=== PATIENT | female | born 1940 | race Caucasian/White ===

== ENCOUNTER 2016-10-14 14:31 | Emergency (ER) | payer OTHER ==
[2016-10-14 14:43] VITALS: TEMP 100.2
[2016-10-14] MEDS ORDERED: ACETAMINOPHEN 325 MG TAB PO ONE (15:00)
--- NOTE | 2016-10-14 15:15 | EDPHY ---
H & P Time Seen by Provider: 10/14/16 15:12 HPI/ROS: CHIEF COMPLAINT: Nausea, sweatiness HISTORY OF PRESENT ILLNESS: 76-year-old female with a history of oxygen- dependent COPD presents with nausea and sweatiness. Onset of intermittent nausea few days ago. Associated with intermittent sweatiness and feeling slightly off balance. Since yesterday, she has been using oxygen around the clock; usually she uses oxygen at nighttime only. She also has myalgias, a sore throat and a chronic cough. No change in her usual cough. No vomiting, diarrhea, abdominal pain or urinary symptoms. REVIEW OF SYSTEMS: Constitutional: No fever, no chills Eyes: No visual changes ENT: Had 3 teeth pulled 2 weeks ago Cardiac: No chest pain Gastrointestinal: no vomiting, no abdominal pain Genitourinary: No hematuria, no dysuria Musculoskeletal: No leg swelling Skin: No rash Neurological: No headache, no weakness Psychiatric: No depression Past Medical/Surgical History: COPD Diabetes Hypertension AICD Social History: PCP: Dr. Raza Smoking Status: Former smoker Physical Exam: General Appearance: Alert, nontoxic Eyes: Pupils equal and round, no conjunctival pallor or injection ENT, Mouth: Mucous membranes moist, no pharyngeal erythema Neck: Normal inspection, no adenopathy Respiratory: normal respiratory rate, Lungs are clear to auscultation, no wheezing Cardiovascular: Regular rate and rhythm Gastrointestinal: Abdomen is soft and nontender Neurological: A&O, nonfocal, normal gait Skin: Warm and dry, no rash Extremities: Nontender, no pedal edema Psychiatric: Mood and affect normal Constitutional: Initial Vital Signs Temperature (C) 37.9 C 10/14/16 14:37 Heart Rate 97 10/14/16 14:37 Respiratory Rate 167 H 10/14/16 14:37 Blood Pressure 162/126 H 10/14/16 14:37 O2 Sat (%) 97 10/14/16 14:37 O2 Delivery Mode Nasal Cannula O2 (L/minute) 2 Allergies/Adverse Reactions: cefaclor [From [facility]] Allergy (Verified 10/14/16 14:34) Unknown Home Medications: Medication Instructions Recorded Albuterol [Proventil Inhaler HFA 2 puffs IH Q4H PRN 10/22/13 (*)] Aspirin [Aspirin 81mg (*)] 81 mg PO DAILY 10/22/13 Fluoxetine HCl 60 mg PO DAILY 10/22/13 Nitroglycerin [Nitrostat 0.4 mg 0.4 mg SL PRN PRN 10/22/13 (*)] Omeprazole [Prilosec 20 mg] 20 mg PO DAILY 10/22/13 Oxycodone HCl/Acetaminophen 1 each PO Q3 PRN 10/22/13 [Percocet 10-325 mg Tablet] Tiotropium Inhaler [Spiriva 1 inh IH HS 10/22/13 Inhaler (RX)] Furosemide [Lasix 20 MG (*)] 20 - 40 mg PO BID 09/16/15 Spironolactone [Aldactone 25 MG 50 mg PO BID 09/16/15 (*)] Temazepam [Restoril 15 MG (*)] 30 mg PO HS PRN 09/16/15 Azithromycin [Zithromax] 250 mg PO DAILY #6 tab 10/14/16 Ondansetron Odt [Zofran Odt 4 mg 4 mg PO Q4 PRN #6 tab 10/14/16 (*)] Medical Decision Making - Diagnostics EKG Interpretation: EKG interpreted by me reveals normal sinus rhythm, rate 89, poor R-wave progression, T-wave flattening in 1 and aVL. Similar to EKG dated 09/16/2015. Imaging Results: Imaging Impressions Chest X-Ray 10/14/16 14:59 Impression: 1. Pacemaker without pneumothorax. 2. Chronic bronchitis/airways disease. 3. No definite focal pneumonia. Imaging: I viewed and interpreted images myself ED Course/Re-evaluation: This patient presents with low-grade fever, increased oxygen need and URI symptoms. She does not meet SIRS criteria. I suspect that the intermittent diaphoresis is related to fever. I do not suspect a cardiac etiology for her symptoms. Tylenol 650 mg orally given on patient arrival. Triage VS noted. RR is 16 (not 167). BNP is slightly elevated; no evidence of acute pulmonary edema causing this patient's symptoms. I feel that she has bronchitis or possibly early pneumonia. Will place her on Zithromax. She will return to the emergency department for worsening symptoms. She will follow up with Dr. Raza in the office. Differential Diagnosis: Differential diagnosis includes though it is not limited to pneumonia, pneumothorax, pulmonary embolism, aortic dissection, pericarditis, acute coronary syndrome. - Data Points Laboratory Results: Laboratory Results 10/14/16 15:10 05/06/17 15:10 10/14/16 10/14/16 10/14/16 15:45 15:10 15:10 WBC RBC Hgb Hct MCV MCH MCHC RDW Plt Count MPV Neut % (Auto) Lymph % (Auto) [place] % (Auto) Eos % (Auto) Baso % (Auto) Nucleat RBC Rel Count Absolute Neuts (auto) Absolute Lymphs (auto) Absolute Monos (auto) Absolute Eos (auto) Absolute Basos (auto) Absolute Nucleated RBC Immature Gran % Immature Gran # Sodium 141 mEq/L mEq/L (134-144) Potassium 4.0 mEq/L mEq/L (3.5-5.2) Chloride 98 mEq/L mEq/L (97-110) Carbon Dioxide 23 mEq/l mEq/l (22-31) Anion Gap 20 mEq/L H mEq/L (8-16) BUN 16 mg/dL mg/dL (7-23) Creatinine 1.1 mg/dL H mg/dL (0.6-1.0) Estimated GFR 48 Glucose 140 mg/dL H mg/dL (70-100) Calcium 9.8 mg/dL mg/dL (8.5-10.4) Total Bilirubin 0.5 mg/dL mg/dL (0.1-1.4) AST 30 IU/L IU/L (14-46) ALT 29 IU/L IU/L (9-52) Alkaline Phosphatase 77 IU/L IU/L (38-126) NT-Pro-B Natriuret Pep 585 pg/mL H pg/mL (0-450) Total Protein 8.6 g/dL H g/dL (6.3-8.2) Albumin 4.8 g/dL g/dL (3.5-5.0) Urine Color PALE YELLOW Urine Appearance CLEAR Urine pH 5.5 (5.0-7.5) Ur Specific [place] <= 1.005 (1.002-1.030) Urine Protein NEGATIVE (NEGATIVE) Urine Ketones NEGATIVE (NEGATIVE) Urine Blood NEGATIVE (NEGATIVE) Urine Nitrate NEGATIVE (NEGATIVE) Urine Bilirubin NEGATIVE (NEGATIVE) Urine Urobilinogen 0.2 EU EU (0.2-1.0) Ur Leukocyte Esterase NEGATIVE (NEGATIVE) Urine Glucose NEGATIVE (NEGATIVE) 10/14/16 15:10 WBC 9.53 10^3/uL H 10^3/uL (3.80-9.50) RBC 4.26 10^6/uL 10^6/uL (4.18-5.33) Hgb 12.6 g/dL g/dL (12.6-16.3) Hct 38.4 % % (38.0-47.0) MCV 90.1 fL fL (81.5-99.8) MCH 29.6 pg pg (27.9-34.1) MCHC 32.8 g/dL g/dL (32.4-36.7) RDW 12.6 % % (11.5-15.2) Plt Count 241 10^3/uL 10^3/uL (150-400) MPV 9.8 fL fL (8.7-11.7) Neut % (Auto) 77.7 % H % (39.3-74.2) Lymph % (Auto) 10.7 % L % (15.0-45.0) [place] % (Auto) 9.7 % % (4.5-13.0) Eos % (Auto) 1.2 % % (0.6-7.6) Baso % (Auto) 0.2 % L % (0.3-1.7) Nucleat RBC Rel Count 0.0 % % (0.0-0.2) Absolute Neuts (auto) 7.41 10^3/uL H 10^3/uL (1.70-6.50) Absolute Lymphs (auto) 1.02 10^3/uL 10^3/uL (1.00-3.00) Absolute Monos (auto) 0.92 10^3/uL H 10^3/uL (0.30-0.80) Absolute Eos (auto) 0.11 10^3/uL 10^3/uL (0.03-0.40) Absolute Basos (auto) 0.02 10^3/uL 10^3/uL (0.02-0.10) Absolute Nucleated RBC 0.00 10^3/uL 10^3/uL (0-0.01) Immature Gran % 0.5 % % (0.0-1.1) Immature Gran # 0.05 10^3/uL 10^3/uL (0.00-0.10) Sodium Potassium Chloride Carbon Dioxide Anion Gap BUN Creatinine Estimated GFR Glucose Calcium Total Bilirubin AST ALT Alkaline Phosphatase NT-Pro-B Natriuret Pep Total Protein Albumin Urine Color Urine Appearance Urine pH Ur Specific [place] Urine Protein Urine Ketones Urine Blood Urine Nitrate Urine Bilirubin Urine Urobilinogen Ur Leukocyte Esterase Urine Glucose Medications Given: Discontinued Medications Acetaminophen (Tylenol) 650 mg PO EDNOW ONE Stop: 10/14/16 15:01 Last Admin: 10/14/16 15:25 Dose: 650 mg Ondansetron HCl (Zofran Odt) 4 mg PO EDNOW ONE Stop: 10/14/16 15:18 Last Admin: 10/14/16 16:25 Dose: 4 mg Departure - Departure Disposition: Home, Routine, Self-Care Clinical Impression: COPD (chronic obstructive pulmonary disease) Qualifiers: COPD type: COPD with acute lower respiratory infection Qualified Code(s): J44.0 - Chronic obstructive pulmonary disease with acute lower respiratory infection Condition: Good Instructions: COPD (Chronic Obstructive Pulmonary Disease) (ED) Additional Instructions: Take Tylenol 650 mg orally every 4 hours as needed for fever. Return for worsening symptoms or any concerns. Referrals: Thong Raza MD [Primary Care Provider] - 2-3 days, call for appt. Prescriptions: Azithromycin [Zithromax] 250 mg PO DAILY #6 tab Ondansetron Odt [Zofran Odt 4 mg (*)] 4 mg PO Q4 PRN #6 tab PRN Reason: Nausea
[2016-10-14 15:17] LABS: % IMMATURE GRANULYOCYTES 0.5 % (0.0-1.1); ABSOLUTE IMMATURE GRANULOCYTES 0.05 10^3/uL (0.00-0.10); ADD DIFF? NO; ADD MORPH? NO; ADD SCAN? NO; ATYPICAL LYMPHOCYTE FLAG 0 (0-99); FRAGMENT RBC FLAG 0 (0-99); HEMATOCRIT 38.4 % (38.0-47.0); HEMOGLOBIN 12.6 g/dL (12.6-16.3); LEFT SHIFT FLG 0 (0-99); LIPEMIA HEMOLYSIS FLAG 80 (0-99); MEAN CELL HEMOGLOBIN 29.6 pg (27.9-34.1); MEAN CELL HEMOGLOBIN CONCENTR. 32.8 g/dL (32.4-36.7); MEAN CELL VOLUME 90.1 fL (81.5-99.8); MEAN PLATELET VOLUME 9.8 fL (8.7-11.7); PLATELET CLUMPS FLAG 0 (0-99); PLATELET COUNT 241 10^3/uL (150-400); RED BLOOD CELL COUNT 4.26 10^6/uL (4.18-5.33); RED CELL DISTRIBUTION WIDTH 12.6 % (11.5-15.2)
[2016-10-14] MEDS ORDERED: ONDANSETRON DISINTEGRATING 4 MG TAB PO ONE (15:17)
[2016-10-14 15:30] VITALS: O2SAT 96
[2016-10-14 15:30] LABS: ALBUMIN 4.8 g/dL (3.5-5.0); BILIRUBIN,TOTAL 0.5 mg/dL (0.1-1.4); CALCIUM 9.8 mg/dL (8.5-10.4); CREATININE 1.1 mg/dL (0.6-1.0); TOTAL PROTEIN 8.6 g/dL (6.3-8.2)
--- NOTE | 2016-10-14 15:45 | CPEKG ---
Heart Rate: 89 RR Interval: 674 P-R Interval: 192 QRSD Interval: 96 QT Interval: 408 QTC Interval: 497 P [place]: 49 QRS [place]: 7 T Wave [place]: 72 EKG Severity - BORDERLINE ECG - EKG Impression: SINUS RHYTHM EKG Impression: BORDERLINE T ABNORMALITIES, ANT-LAT LEADS EKG Impression: BORDERLINE PROLONGED QT INTERVAL Electronically Signed By: Narinder Ruzi 17-Oct-2016 14:43:33
[2016-10-14 15:51] LABS: LEUKOCYTE ESTERASE,URINE NEGATIVE (NEGATIVE); NITRITE,URINE NEGATIVE (NEGATIVE); PH,URINE 5.5 (5.0-7.5)
[2016-10-14 15:52] LABS: COLOR PALE YELLOW
[2016-10-14 17:06] VITALS: BP 141/81; PULSE 91; RESP 18
== END 2016-10-14 16:20 | disposition home or self-care (01) ==
LOC: CED 14:31
DX: J44.0 Chronic obstructive pulmonary disease with (acute) lower respiratory infection (principal); E11.9 Type 2 diabetes mellitus without complications; I10 Essential (primary) hypertension; Z79.82 Long term (current) use of aspirin; Z87.891 Personal history of nicotine dependence
CPT/HCPCS: 71020-PO; 80053-PO; 81003-PO; 83880-PO; 85025-PO

== ENCOUNTER 2016-11-01 19:00 | Emergency (ER) | payer OTHER ==
--- NOTE | 2016-11-01 19:05 | EDPHY ---
H & P Time Seen by Provider: 11/01/16 19:05 HPI/ROS: CHIEF COMPLAINT: Diarrhea nausea and abdominal pain HISTORY OF PRESENT ILLNESS: Patient started having symptoms at 6:00 a.m.. Of note her grandson had similar symptoms last night starting at midnight. Patient has had multiple episodes of foul-smelling brown diarrhea today without blood. 5 episodes total. It is associated with 9/10 periumbilical abdominal pain and cramping and nausea unresponsive to Phenergan at 1500. Pain does not radiate is described as severe. She feels hot and sweaty and like she might have a fever. Patient was seen on 10/14/2016 and treated for respiratory infection with azithromycin. REVIEW OF SYSTEMS: Eye: no change in vision ENT: no sore throat Cardiac: no chest pain or syncope Pulmonary: no cough or SOB, chronically on home oxygen, no respiratory symptoms today. Abdomen: HPI Musculoskeletal: no back pain Skin: no rash Neuro: no headache Constitutional: HPI : no urinary symptoms A comprehensive 10 point review of systems is otherwise negative aside from elements mentioned in the history of present illness. PAST MEDICAL HISTORY: History and physical dated 09/16/2015 personally reviewed. Includes coronary disease, ischemic cardiomyopathy, COPD, hypertension, hyperlipidemia, diabetes, AICD. Social history: Here with [id number] General Appearance: Alert and conversant, cooperative. Eyes: No scleral icterus. ENT, Mouth: Dry mucous membranes Respiratory: Normal respiratory effort, breath sounds equal, lungs are clear to auscultation. Cardiovascular: Regular rate and rhythm. Gastrointestinal: Right upper and lower quadrant tenderness without rebound or guarding. Neurological: Alert and oriented x3. Normally conversant. Face symmetric, normal movement and sensation in all extremities. Skin: Warm and dry, no rashes. Musculoskeletal: No peripheral edema and no joint swelling. Psychiatric: Not agitated. Emergency Department course/MDM: Fentanyl 50 mcg IV, Zofran 4 mg IV. Patient recently was on azithromycin for bronchial infection but is not currently taking macrolides. Normal saline 1 L IV for diarrhea and dehydration. CT scanning for evaluation of colitis. CT negative for abdominal pain source, [place] 2016. 2029: Re-examined, results discussed, no vomiting. We discussed and I offered admission for IV hydration and continued control of symptoms but the patient says that she would prefer to go home if possible. 2114: Re-examined, results discussed, she feels better and would like to try and go home. Discharged with Zofran ODT. Smoking Status: Former smoker Constitutional: Initial Vital Signs Temperature (C) 36.6 C 11/01/16 19:05 Heart Rate 90 11/01/16 19:05 Respiratory Rate 18 11/01/16 19:05 Blood Pressure 172/95 H 11/01/16 19:05 O2 Sat (%) 94 11/01/16 19:05 O2 Delivery Mode Nasal Cannula O2 (L/minute) 2 Allergies/Adverse Reactions: cefaclor [From [email or web address]] Allergy (Verified 11/01/16 19:18) Unknown Home Medications: Medication Instructions Recorded Albuterol [Proventil Inhaler HFA 2 puffs IH Q4H PRN 10/22/13 (*)] Aspirin [Aspirin 81mg (*)] 81 mg PO DAILY 10/22/13 Fluoxetine HCl 60 mg PO DAILY 10/22/13 Nitroglycerin [Nitrostat 0.4 mg 0.4 mg SL PRN PRN 10/22/13 (*)] Omeprazole [Prilosec 20 mg] 20 mg PO DAILY 10/22/13 Oxycodone HCl/Acetaminophen 1 each PO Q3 PRN 10/22/13 [Percocet 10-325 mg Tablet] Tiotropium Inhaler [Spiriva 1 inh IH HS 10/22/13 Inhaler (RX)] Furosemide [Lasix 20 MG (*)] 20 - 40 mg PO BID 09/16/15 Spironolactone [Aldactone 25 MG 50 mg PO BID 09/16/15 (*)] Temazepam [Restoril 15 MG (*)] 30 mg PO HS PRN 09/16/15 Ondansetron Odt [Zofran Odt 4 mg 4 mg PO Q4 PRN #6 tab 10/14/16 (*)] Medical Decision Making - Diagnostics Imaging Results: Imaging Impressions Abdomen CT 11/01/16 19:34 Impression: 1. No acute intraabdominal process. No free fluid, abscess, or mass. 2. Minimal sigmoid diverticulosis. No acute diverticulitis. 3. Normal caliber atherosclerotic abdominal aorta. Findings discussed with Emergency Department physician, Margarito Lisa M.D., on November 01, 2016 at 2015 hours. Differential Diagnosis: Differential for abdominal pain considered including but not limited to infectious colitis, diverticulitis, ischemic colitis, intestinal perforation. - Data Points Laboratory Results: Laboratory Results 11/01/16 19:20 11/01/16 19:20 11/01/16 11/01/16 11/01/16 19:22 19:20 19:20 WBC 10.28 10^3/uL H 10^3/uL (3.80-9.50) RBC 4.33 10^6/uL 10^6/uL (4.18-5.33) Hgb 12.9 g/dL g/dL (12.6-16.3) POC Hgb 14.3 gm/dL gm/dL (12.3-15.9) Hct 39.6 % % (38.0-47.0) POC Hct 42 % % (35.5-47.5) MCV 91.5 fL fL (81.5-99.8) MCH 29.8 pg pg (27.9-34.1) MCHC 32.6 g/dL g/dL (32.4-36.7) RDW 12.3 % % (11.5-15.2) Plt Count 253 10^3/uL 10^3/uL (150-400) MPV 9.8 fL fL (8.7-11.7) Neut % (Auto) 78.0 % H % (39.3-74.2) Lymph % (Auto) 12.3 % L % (15.0-45.0) [place] % (Auto) 8.0 % % (4.5-13.0) Eos % (Auto) 1.1 % % (0.6-7.6) Baso % (Auto) 0.1 % L % (0.3-1.7) Nucleat RBC Rel Count 0.0 % % (0.0-0.2) Absolute Neuts (auto) 8.03 10^3/uL H 10^3/uL (1.70-6.50) Absolute Lymphs (auto) 1.26 10^3/uL 10^3/uL (1.00-3.00) Absolute Monos (auto) 0.82 10^3/uL H 10^3/uL (0.30-0.80) Absolute Eos (auto) 0.11 10^3/uL 10^3/uL (0.03-0.40) Absolute Basos (auto) 0.01 10^3/uL L 10^3/uL (0.02-0.10) Absolute Nucleated RBC 0.00 10^3/uL 10^3/uL (0-0.01) Immature Gran % 0.5 % % (0.0-1.1) Immature Gran # 0.05 10^3/uL 10^3/uL (0.00-0.10) POC Sodium 135 mEq/L mEq/L (134-144) Sodium 136 mEq/L mEq/L (134-144) POC Potassium 3.9 mEq/L mEq/L (3.3-5.0) Potassium 4.5 mEq/L mEq/L (3.5-5.2) POC Chloride 96 mEq/L mEq/L (96-108) Chloride 92 mEq/L L mEq/L (97-110) Carbon Dioxide 24 mEq/l mEq/l (22-31) Anion Gap 20 mEq/L H mEq/L (8-16) POC BUN 16 mg/dL mg/dL (7-23) BUN 15 mg/dL mg/dL (7-23) Creatinine 1.1 mg/dL H mg/dL (0.6-1.0) POC Creatinine 1.1 mg/dL mg/dL (0.6-1.2) Estimated GFR 48 Glucose 174 mg/dL H mg/dL (70-100) POC Glucose 175 mg/dL H mg/dL (70-100) Calcium 10.2 mg/dL mg/dL (8.5-10.4) Total Bilirubin 0.5 mg/dL mg/dL (0.1-1.4) Conjugated Bilirubin 0.4 mg/dL mg/dL (0.0-0.5) Unconjugated Bilirubin 0.1 mg/dL mg/dL (0.0-1.1) AST 33 IU/L IU/L (14-46) ALT 26 IU/L IU/L (9-52) Alkaline Phosphatase 73 IU/L IU/L (38-126) Total Protein 8.4 g/dL H g/dL (6.3-8.2) Albumin 4.6 g/dL g/dL (3.5-5.0) Lipase 113.0 IU/L IU/L (23-300) Medications Given: Discontinued Medications Fentanyl (Sublimaze) 50 mcg IVP EDNOW ONE Stop: 11/01/16 19:17 Last Admin: 11/01/16 19:35 Dose: 50 mcg Sodium Chloride (Ns) 1,000 mls @ 0 mls/hr IV ONCE ONE PRN Reason: Wide Open Stop: 11/01/16 19:17 Last Admin: 11/01/16 19:30 Dose: 1,000 mls Ondansetron HCl (Zofran) 4 mg IVP EDNOW ONE Stop: 11/01/16 19:17 Last Admin: 11/01/16 19:33 Dose: 4 mg Oxycodone HCl (Oxycodone Ir) 5 mg PO EDNOW ONE Stop: 11/01/16 19:48 Last Admin: 11/01/16 19:54 Dose: 5 mg Oxycodone/Acetaminophen (Percocet 5/325) 1 tab PO EDNOW ONE Stop: 11/01/16 19:48 Last Admin: 11/01/16 19:54 Dose: 1 tab Point of Care Test Results: 11/01/16 19:22 POC Sodium 135 POC Potassium 3.9 POC Chloride 96 POC BUN 16 POC Creatinine 1.1 POC Glucose 175 H Departure - Departure Disposition: Home, Routine, Self-Care Clinical Impression: Dehydration Diarrhea Qualifiers: Diarrhea type: unspecified type Qualified Code(s): R19.7 - Diarrhea, unspecified Condition: Good Instructions: Dehydration (ED), Acute Diarrhea (ED) Referrals: Thong Raza MD [Primary Care Provider] - As per Instructions
[2016-11-01] MEDS ORDERED: fentaNYL 100 MCG/2 ML INJ IVP ONE (19:16)
[2016-11-01] MEDS ORDERED: NS 1,000 ML IV ONE ×2 (19:16→20:03)
[2016-11-01] MEDS ORDERED: ONDANSETRON 4 MG/2 ML VIAL IVP ONE (19:16)
[2016-11-01 19:25] LABS: % IMMATURE GRANULYOCYTES 0.5 % (0.0-1.1); ABSOLUTE IMMATURE GRANULOCYTES 0.05 10^3/uL (0.00-0.10); ADD DIFF? NO; ADD MORPH? NO; ADD SCAN? NO; ATYPICAL LYMPHOCYTE FLAG 0 (0-99); FRAGMENT RBC FLAG 0 (0-99); HEMATOCRIT 39.6 % (38.0-47.0); HEMOGLOBIN 12.9 g/dL (12.6-16.3); LEFT SHIFT FLG 0 (0-99); LIPEMIA HEMOLYSIS FLAG 80 (0-99); MEAN CELL HEMOGLOBIN 29.8 pg (27.9-34.1); MEAN CELL HEMOGLOBIN CONCENTR. 32.6 g/dL (32.4-36.7); MEAN CELL VOLUME 91.5 fL (81.5-99.8); MEAN PLATELET VOLUME 9.8 fL (8.7-11.7); PLATELET CLUMPS FLAG 0 (0-99); PLATELET COUNT 253 10^3/uL (150-400); RED BLOOD CELL COUNT 4.33 10^6/uL (4.18-5.33); RED CELL DISTRIBUTION WIDTH 12.3 % (11.5-15.2)
[2016-11-01 19:43] LABS: ALBUMIN 4.6 g/dL (3.5-5.0); BILIRUBIN,TOTAL 0.5 mg/dL (0.1-1.4); BILIRUBIN-CONJUGATED 0.4 mg/dL (0.0-0.5); BILIRUBIN-UNCONJUGATED 0.1 mg/dL (0.0-1.1); CALCIUM 10.2 mg/dL (8.5-10.4); CREATININE 1.1 mg/dL (0.6-1.0); POTASSIUM 4.5 mEq/L (3.5-5.2); TOTAL PROTEIN 8.4 g/dL (6.3-8.2)
[2016-11-01] MEDS ORDERED: IOPAMIDOL (ISOVUE-300) 100 ML BTL ONE (19:44)
[2016-11-01] MEDS ORDERED: oxyCODONE IR 5 MG TAB PO ONE (19:47)
[2016-11-01] MEDS ORDERED: OXYCODONE/APAP 5/325 TAB PO ONE (19:47)
[2016-11-01 21:01] VITALS: RESP 16
[2016-11-01] MEDS ORDERED: ONDANSETRON 4MG PREPACK#2 BTL TAKEHOME ONE (21:08)
[2016-11-01] MEDS ORDERED: ONDANSETRON DISINTEGRATING 4 MG TAB PO ONE (21:54)
[2016-11-01 22:06] VITALS: BP 123/83; PULSE 87; TEMP 98.4; O2SAT 93
== END 2016-11-01 22:04 | disposition home or self-care (01) ==
LOC: CED 19:00
DX: E86.0 Dehydration (principal); I25.10 Atherosclerotic heart disease of native coronary artery without angina pectoris; J44.9 Chronic obstructive pulmonary disease, unspecified; I10 Essential (primary) hypertension; E11.9 Type 2 diabetes mellitus without complications; Z79.82 Long term (current) use of aspirin; Z87.891 Personal history of nicotine dependence
CPT/HCPCS: 74177; 96361; 96374; 96375; 99285; J2405; J3010; Q9967; 80048-PO; 80076-PO; 82947-QW; 83690-PO; 85025-PO